=== PATIENT | male | born 1970 | race Caucasian/White ===

== ENCOUNTER → 2017-02-21 08:45 | Outpatient (CLI) | payer BC | END | disposition home or self-care (01) | LOC: D.CT 08:45 | DX: R91.1 Solitary pulmonary nodule (principal) ==

== ENCOUNTER → 2017-08-18 08:51 | Outpatient (CLI) | payer BC | END | disposition home or self-care (01) | LOC: D.CT 08:51 | DX: R93.8 Abnormal findings on diagnostic imaging of other specified body structures (principal) ==